=== PATIENT | female | born 1935 | race Caucasian/White ===

== ENCOUNTER → 2017-06-10 | Outpatient (CLI) | payer MEDICARE ==
[~2017-06-10] VITALS: Ht 157.5 cm; Wt 98.9 kg
[~2017-06-10] MED LIST: ALBU17I INH; CENTTAB9; CHLORHEXIDINE GLUCONATE 2 % 1 PACK (2 CLOTHS) TOPICAL PRN; DETROL PO; EZET10 PO; FUROSEMIDE PO; GLUCTAB47; INSULIN HUMAN REGULAR 1,000 UNITS/10 ML VIAL SQ PRN; LACTATED RINGER'S 1000 ML IV PRN; METOPROLOL TARTRATE 25 MG TAB PO PRN; OMEG1CAP53; PHENTERMINE 30 MG PO; POVIDONE IODINE 5% (ANTISEPSIS KIT) 4 APPLICATIONS EACH NARE PRN; PROPOFOL 200 MG/20 ML AMP IV PUSH ONE; RELACORE PO; SIMVASTIN PO; SODIUM CHLORID 0.9% 500 ML IV PRN
[2017-06-10 13:10] VITALS: BP 167/79; PULSE 94; RESP 18; TEMP 98.2; O2SAT 95
[2017-06-10 14:38] VITALS: TEMP 98.1
[2017-06-10 14:58] VITALS: BP 165/73; PULSE 78; RESP 18; O2SAT 95
--- NOTE | 2017-06-10 19:14 | PD.PROCEDR ---
GI Procedure REFERRING PHYSICIAN Dr. guerrier PROCEDURE PERFORMED Colonoscopy INDICATION FOR PROCEDURE Screening colonoscopy PROCEDURE: The procedure, risks and benefits were discussed with Ms. Jessica and informed consent was obtained. Anesthesia sedated her with Diprivan. She was placed in the left lateral decubitus position. Colonoscopy: The Pentax videoscope was introduced through the rectum and advanced to cecum where the ileocecal valve and appendiceal orifice were identified. Retroflexion was performed in the rectum. Colonic prep was good FINDINGS: Colonic withdrawal time greater than 6 minutes as the scope was slowly withdrawn colonic mucosa was carefully inspected this was noted to be unremarkable and within normal limits although a through the patient was noted to have moderate diverticulosis in the sigmoid and retroflexion was unremarkable cells rectal examination ESTIMATED BLOOD LOSS: None SPECIMENS REMOVED: None COMPLICATIONS: None IMPRESSION: Diverticulosis PLAN: High-fiber diet Follow-up with GI as needed Joe Espinoza MD Jun 10, 2017 19:14
--- NOTE | 2017-06-10 20:05 | EKG ---
Date Performed: 06/10/2017 Time Performed: 12:19:27 PTAGE: 82 years EKG: Sinus rhythm WITH OCCASIONAL VENTRICULAR PREMATURE COMPLEXES RIGHT AXIS RIGHT BUNDLE BRANCH BLOCK ABNORMAL ECG PREVIOUS TRACING : 07/12/2007 09.33 Compared to prior tracing no significant change DOCTOR: Dolores Le Interpretating Date/Time 06/10/2017 20:04:47
== END ==
LOC: HEND 11:55
PROVIDERS: ATTEND Internal Medicine Gastroenterology
DX: Z12.11 Encounter for screening for malignant neoplasm of colon (principal); K57.90 Diverticulosis of intestine, part unspecified, without perforation or abscess without bleeding; R94.31 Abnormal electrocardiogram [ECG] [EKG]
CPT/HCPCS: 93005